=== PATIENT | female | born 1990 | race Caucasian/White ===

== ENCOUNTER 2023-11-19 09:15 | Outpatient (AMB) | payer OTHER, SELFPAY ==
--- NOTE | 2023-11-19 09:16 | AM.OFFWIN_ITS ---
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 She did not test for COVID yet. She denies known sick contacts. She is a nurse practitioner student. She de nies fever chills, weakness or dizziness, malaise or myalgias, nausea vomiting or diarrhea, significant sore throat or cough, shortness of breath or chest pain, decreased hearing or tinnitus, discharge from the ear, or other significant associated symptoms. No significant past medical history reported, except for being very busy and stressed the past week. [facility] Social History Patient Tobacco Use Status: Never used Tobacco Review of Systems Const All systems reviewed & are unremarkable except as noted in HPI and below Physical Exam Vital Signs: Last Vital Signs Temp 97.9 F 11/19/23 09:18 Pulse 64 11/19/23 09:18 BP 100/60 11/19/23 09:18 Pulse Ox 99 11/19/23 09:18 Oxygen Delivery Method Room Air 11/19/23 09:18 BMI result Body Mass Index 20.8 Const General: cooperative, healthy appearing, comfortable, no acute distress, alert, awake, Physically active and well groomed; No anxious, diaphoretic, ill appearing, intoxicated appearing, poor hygiene or tired appearing Nutritional Appearance: average body habitus Limitations: no limitations HEENT Head: Yes normal to inspection, Yes normocephalic and Yes atraumatic Ears: hearing grossly normal bilaterally, external ears normal, TM normal on the left, EAC's normal and TM abnormal (Right side has some visible fluid around the edge) with fluid behind the TM; not bulging, not erythematous, with no loss of landmarks, not perforated and not retracted General nose exam: Normal external nose present, Normal nares present, No nasal polyps present and Normal nasal mucous membranes and turbinates present Face and sinus: Yes normal facial exam, Yes sinuses nontender and Yes face symmetric Mouth: Normal oral and palatal mucosa present, lip normal and tongue normal Throat: No tonsils normal, Yes uvula midline, Yes abnormal tonsil (Some mild erythema and white exudate on the right side), No peritonsillar mass, Yes sales analytics manager ior oropharynx abnormal, Yes postnasal drainage, No uvula laterally displaced, No uvular edema and No cobblestoning Eyes General: appearance normal, both eyes and all related structures Neck Neck: Yes normal visual inspection, Yes no lymphadenopathy, Yes trachea midline, Yes supple and No anterior neck swelling Resp Effort & Inspection: normal respiratory effort Skin Other: Good color, warm and dry Psych Appearance: grossly normal Mental Status: mental status grossly normal Speech and movement: Normal speech and movement present Affect: normal affect Attitude: cooperative Thought process: Normal thought process present Insight: Good insight present (Psych) Judgement: Good judgement present (Psych) Results AMB Rapid Strep AMB Rapid Strep Negative Last Edit by Mikael Honeycutt CMA on 11/19/23 09 :58 Results Reviewed Results Reviewed: Laboratory Last Values Strep Scn Rapid Clinic Negative 11/19/23 09:58 Negative Assessment & Plan Assessment & Plan (1) Serous otitis media: Code(s): H65.90 - Unspecified nonsuppurative otitis media, unspecified ear Qualifiers: Chronicity: acute Laterality: right Recurrence: non-recurrent Qualified Code(s): H65.01 - Acute serous otitis media, right ear Plan: Patient about a week in to URI, and developing pressure to the right inner ear, that radiates down the throat. Pending flu COVID and RSV results, as well as throat culture, as she does have some speckled white to the right tonsil today. Rapid strep screen was negative. She has an apparent serous otitis media, and we discussed supportive measures such as ibuprofen, heating the ear, tugging and swallowing frequently with good water intake. She also can use Flonase. She will monitor her symptoms closely and will follow up if she persists or worsens, including increased ear pain, fever or chills. 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 Orders: Orders Throat Culture Today J02.9 - Acute pharyngitis, unspecified AMB Rapid Strep Screen Today Z13.9 - Encounter for screening, unspecified SARS-CoV2/FLU/RSV Today J06.9 - Acute upper respiratory infection, unspecified Coding Level of Care Code New Pt Level 4 (00648) Diagnoses Non-recurrent acute serous otitis media of right ear H65.01 Chronicity: acute Laterality: right Recurrence: non-recurrent
[2023-11-19 09:18] VITALS: BP 100/60; PULSE 64; TEMP 36.6; O2SAT 99; BMI 20.8
== END 2023-11-19 10:19 | disposition home or self-care (01) ==
PROVIDERS: PCP Registered Nurse; Visit Provider Physician Assistant Medical
DX: H65.01 Acute serous otitis media, right ear (principal); J02.9 Acute pharyngitis, unspecified
CPT/HCPCS: 87880; 99051; 99204

== ENCOUNTER 2023-11-19 09:54 | Outpatient (REF) | payer OTHER, SELFPAY ==
[2023-11-19 12:28] LABS: Influenza A PCR NEGATIVE (Negative); Influenza B PCR NEGATIVE (Negative); Resp Syncy Virus RNA Qual PCR NEGATIVE (Negative); SARS COV2 PCR INHOUSE NEGATIVE (Negative)
== END 2023-11-19 09:55 | disposition home or self-care (01) ==
LOC: HO.LAB 09:54
PROVIDERS: Visit Provider Physician Assistant Medical
DX: J06.9 Acute upper respiratory infection, unspecified (principal); Z13.9 Encounter for screening, unspecified
CPT/HCPCS: 0241U; 87070

== ENCOUNTER 2024-07-26 07:52 | Outpatient (AMB) | payer OTHER, SELFPAY ==
--- OUTSIDE RECORDS SUMMARY | 2024-07-26 07:55 | XMS_ITS ---
Author Organization [facility], [facility] Address [address] [place] [phone] Care Team Providers Care Adzing And Boring Machine Helper Name Role Phone KAYLIN RANGEL Primary Care Provider [phone] Avery Angella Hernandez [phone] REASON FOR VISIT Refills MEDICATIONS Medication SIG (Take, Route, Frequency, Duration) Notes Start Date End Date Status Methylphenidate HCl ER (OSM) 36 MG 1 tablet in the morning Orally Once a day for 28 days 09/29/2023 10/27/2023 Active Encounters Encounter Location Date Provider Diagnosis [facility], [address] [id number] 09/28/2023 Angella Hernandez Attention deficit hyperactivity disorder (ADHD), combined type F90.2 ASSESSMENTS Encounter Date Diagnosis Assessment Notes Treatment Notes Treatment Clinical Notes Section Notes 09/28/2023 Attention deficit hyperactivity disorder (ADHD), combined type (ICD-10 - F90.2) PLAN OF TREATMENT Medication Medication Name Sig Start Date Stop Date Notes Methylphenidate HCl ER (OSM) 36 MG 1 tablet in the morning Orally Once a day for 28 days 09/29/2023 10/27/2023 Progress Notes * DAVID RECINOSDOB: [birth year] (33 yo F)Acc No.[id number]:09/28/2023 Patient:??DAVID RECINOS :1990?Age:33 Y?Sex:Fe male Phone: Address:[address] [place] [address], [address], [place] [address] * Refills?? Refill Methylphenidate HCl ER (OSM) Tablet Extended Release, 36 MG, Orally, 28 Tablet, 1 tablet in the morning, Once a day, 28 days, Refills=0 * true * Date:??
--- OUTSIDE RECORDS SUMMARY | 2024-07-26 07:55 | XMS_ITS ---
Author Organization [facility], [facility] Address [address] [place] [address] [phone] Care Team Providers Care Licensed And Certified Midwife Name Role Phone KAYLIN RANGEL Primary Care Provider [phone] Avery Angella Hernandez [phone] REASON FOR VISIT Refills MEDICATIONS Medication SIG (Take, Route, Frequency, Duration) Notes Start Date End Date Status Levothyroxine Sodium 25 MCG TAKE ONE-SEBASTIÁN F TABLET BY MOUTH DAILY IN THE MORNING ON AN EMPTY STOMACH for 90 Active traZODone HCl 50 MG 1 tablet at bedtime as needed Orally Once a day for 90 days Active Encounters Encounter Location Date Provider Diagnosis [facility], [address] [id number] 12/20/2023 Angella Hernandez Primary insomnia F51.01 ASSESSMENTS Encounter Date Diagnosis Assessment Notes Treatment Notes Treatment Clinical Notes Section Notes 12/20/2023 Primary insomnia (ICD-10 - F51.01) PLAN OF TREATMENT Medication Medication Name Sig Start Date Stop Date Notes Levothyroxine Sodium 25 MCG TAKE ONE-SEBASTIÁN F TABLET BY MOUTH DAILY IN THE MORNING ON AN EMPTY STOMACH for 90 traZODone HCl 50 MG 1 tablet at bedtime as needed Orally Once a day for 90 days Progress Notes * DAVID RECINOSDOB: [birth year] (33 yo F)Acc No.[id number]:12/20/2023 Patient:??DAVID RECINOS :1990?Age:33 Y?Sex:Fe male Phone: Address:[address] [place] [address], [address], [place] [address] * Refills?? Refill traZODone HCl Tablet, 50 MG, Orally, 90 Tablet, 1 tablet at bedtime as needed, Once a day, 90 days, Refills=1 Refill Levothyroxine Sodium Tablet, 25 MCG, 45 Tablet, TAKE ONE-HALF TABLET BY MOUTH DAILY IN THE MORNING ON AN EMPTY STOMACH, 90, Refills=3 * true * Date:??
--- OUTSIDE RECORDS SUMMARY | 2024-07-26 07:55 | XMS_ITS | Patient Health Record ---
Author Organization [employer] [facility] Address [address] [place] [phone] Care Team Providers Care Seasoning Sprayer Name Role Phone KAYLIN RANGEL Primary Care Provider [phone] Angella Hernandez Unavailable [phone] ALLERGIES No Known Allergies REASON FOR REFERRAL No Information MEDICATIONS Medication SIG (Take, Route, Frequency, Duration) Notes Start Date End Date Status Opzelura 1.5 % 1 application Externally Twice a day for 30 days Active Levothyroxine Sodium 25 MCG TAKE ONE-HALF TABLET BY MOUTH DAILY IN THE MORNING ON AN EMPTY STOMACH for 90 Active B12 Not-Taking cloNIDine HCl 0.1 MG 1 tablet Orally Onc e a day Not-Taking Iodine 500mcg 3x/wk Active Selenium 200 MCG 1 capsule Orally Once a day 02/22/2023 Active D3-1000 25 MCG (1000 UT) TAKE 1 CAPSULE BY MOUTH EVERY DAY FOR 90 DAYS Active Vyvanse 30 MG 1 capsule in the morning Orally Once a day for 28 days 06/08/2023 Not-Taking Vitamin C 500 MG as directed Orally Active tiZANidine HCl 2 MG 1 tablet as needed Orally Three times a day 02/22/2023 Not-Taking Mirena (52 MG) 20 MCG/DAY as directed Intrauterine Active Prazosin HCl 2 MG 1 capsule at bedtime Orally Once a day Not-Taking Fish Oil Active traZODone HCl 50 MG TAKE 1 TABLET BY MOUTH ONCE DAILY AT BEDTIME NEEDED for 90 Active SOCIAL HISTORY Tobacco Use: Social History Observation Description Date Details (start date - stop date) Former Smoker NA - NA Sex Assigned At : Social History Observation Description Sex Assigned At Unknown Tobacco Use/Smoking Question Answer Notes Tobacco use: former smoker How long has it been since y ou last smoked? 1-5 years Additional Findings: Tobacco User Heavy cigarett e smoker (20-39 cigs/day) Section Notes: Lives in [place] alone. 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 Enjoys the outdoors Lives in [place] alone. Enjoys the outdoors Lives in [place] alone. 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) Active confirmed 78167273 Problem Primary insomnia (F51.01) Active confirmed 6660121 Problem Vitiligo (L80) Active confirmed 8444920 7 Problem Other fatigue (R53.83) Active confirmed 51261768 Problem Vitamin D deficiency (E55.9) Active confirmed 40071194 Problem Anxiety (F41.9) Active confirmed 274300 02 Problem Attention deficit hyperactivity disorder (ADHD), combined type (F90.2) Active confirmed 62230947 VITAL SIGNS Height-cm 170.18 cm 09/16/2023 Height 67 in 09/16/2023 Encounters Encounter Location Date Provider Diagnosis [address] [id number] 08/30/2023 Angella Hernandez [address] [id number] 07/26/2023 Angella Hernandez Attention deficit hyperactivity disorder (ADHD), combined type F90.2 ; Autoimmune thyroiditis E06.3 ; Vitamin D deficiency E55.9 and Encounter to discuss test results Z71.[address] [id number] 09/16/2023 Angella Hernandez Attention deficit hyperactivity disorder (ADHD), combined type F90.2 and Autoimmune thyroiditis E06.[address] [id number] 07/26/2023 Angella Hernandez Attention deficit hyperactivity disorder (ADHD), combined type F90.2 [address] [address] [place], [place] [id number] 09/28/2023 Angella Hernandez Attention deficit hyperactivity disorder (ADHD), combined type F90.2 [facility] [address] [place], [place] [phone] 10/07/2023 Angella Hernandez Vitiligo L80 [address] [id number] 12/20/2023 Angella Hernandez Primary insomnia F51.01 ASSESSMENTS Encounter Date Diagnosis Assessment Notes Treatment Notes Treatment Clinical Notes Section Notes 07/26/2023 Attention deficit hyperactivity disorder (ADHD), combined type (ICD-10 - F90.2) Will increase Concerta to see if David can improve her concentration Ideally would like to be on Vyvanse. Will hand write a script to see if she can find this medication and make the switch. Aware she cannot take both of these medications at the same time. She will need to finish Concerta script before filling Vyvanse 4M FU discussed, and she expressed understanding 07/26/2023 Attention deficit hyperactivity disorder (ADHD), combined type (ICD-10 - F90.2) 09/16/2023 Autoimmune thyroiditis (ICD-10 - E06.3) Due for repeat labs Labs already submitted 09/16/2023 Attention deficit hyperactivity disorder (ADHD), combined type (ICD-10 - F90.2) Not stable on current dose/regimen. Denies CP, palpitations, anorexia. ADD/ADHD Score high for patient and indicative of poor control. It is important to understand that stimulants are Schedule-II drugs, which are controlled medications by the [place] (Drug Enforcement Administration). This means we cannot give refills for your stimulant medication unless a new prescription is written for each refill. Schedule-II medications cannot be refilled by telephone. Misuse of stimulant medications is a common and recognized concern in the [facility]. THIS OFFICE WILL NOT TOLERATE MISUSE. EVEN THE APPEARANCE OF MISUSE IS ENOUGH JUSTIFICATION TO CEASE STIMULANT TREATMENT. THERE WILL BE NO REFILLS GIVEN FOR LOST OR STOLEN PRESCRIPTIONS. Do not give your prescription medication to anyone. Keep your medication in a safe place where others do not have access. 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 She is currently taking the 1.5 of Concerta because of the shortage of 36mg. 09/28/2023 Attention deficit hyperactivity disorder (ADHD), combined type (ICD-10 - F90.2) 10/07/2023 Vitiligo (ICD-10 - L80) 12/20/2023 Primary insomnia (ICD-10 - F51.01) 07/26/2023 Autoimmune thyroiditis (ICD-10 - E06.3) Continue current dose FU 8 weeks with repeat TSH 07/26/2023 Vitamin D deficiency (ICD-10 - E55.9) Increase Vit D rich foods Check levels periodically Supplement as indicated 07/26/2023 Encounter to discuss test results (ICD-10 - Z71.2) 07/15/23 US Thyroid Impression- subcentimeter left lobe nodule. No follow-up is recommended PLAN OF TREATMENT Pending Test Test Name Order Date Ultrasound : Neck 06/17/2023 Future Test Test Name Order Date T3, FREE 07/26/2023 T3, REVERSE 07/26/2023 THYROID PEROXIDASE (ANTIMICROSOMAL) ANTI BODIES 07/26/2023 THYROID STIMULATING IMMUNOGLOBULIN 07/26 TSH 07/26/2023 THYROID PANEL 07/26/2023 Insurance Providers Payer Name Payer Address Payer Phone Subscriber Number Group Number Insured Name Patient Relationship to Insured Coverage Start Date Coverage End Date [employer] [address] [place] [phone] [id number] DAVID RECINOS Self - patient is the insured MEDICAL (GENERAL) HISTORY Medical History History ICD Code Anxiety Depression Vitiligo Surgical History Surgery Date(Month/Year) Clare Teeth 2007 Appendectomy 02/14/2023
--- OUTSIDE RECORDS SUMMARY | 2024-07-26 07:55 | XMS_ITS ---
Author Organization [facility], [facility] Address [address] [place] [phone] Care Team Providers Care Education Program Coordinator Name Role Phone KAYLIN RANGEL Primary Care Provider [phone] Avery Angella Hernandez [phone] REASON FOR VISIT Refills MEDICATIONS Medication SIG (Take, Route, Fr equency, Duration) Notes Start Date End Date Status Opzelura 1.5 % 1 application Model Artists[employer] ally Twice a day for 30 days Active Encounters Encounter Location Date Provider Diagnosis [address] [id number] 10/07/2023 Angella Hernandez Vitiligo L80 ASSESSMENTS Encounter Date Diagnosis Assessment Notes Treatment Notes Treatment Clinical Notes Section Notes 10/07/2023 Vitiligo (ICD-10 - L80) PLAN OF TREATMENT Medication Medication Name Sig Start Date Stop Date Notes Opzelura 1.5 % 1 application Model Artists' ally Twice a day for 30 days Progress Notes * DAVID RECINOSDOB: [birth year] (33 yo F)Acc No.[id number]:10/07/2023 Patient:??DAVID RECINOS :1990?Age:33 Y?Sex:Fe male Phone: Address:[address] [place] [address], [address], [place] [address] * Refills?? Refill Opzelura Cream, 1.5 %, Externally, 1, 1 application, Twice a day, 30 days, Refills=1 * true * Date:??
--- OUTSIDE RECORDS SUMMARY | 2024-07-26 07:55 | XMS_ITS | Clinical Summary ---
Author Organization [facility] Business [facility] Address [address] [place] [address] Care Team Providers Care Immigration Lawyer Name Role Phone Ernesto Woods MD Primary Care Pr ovider Medications traZODone (DESYREL) 50 mg tablet Take 1 tablet (50 mg total) by mouth at bedtime. 4 Active methylphenidate 36 mg ER tablet Take 1 tablet (36 mg total) by mouth 1 (one) time each day in the morning. Max Daily Amount: 36 mg 28 tablet 4 Active CLONIDINE HCL ORAL Take by mouth. Active levothyroxine (SYNTHROID, LEVOTHROID) 25 mcg tablet Take 0.5 tablets (12.5 mcg total) by mouth 1 (one) time each day before breakfast. 45 each 5 10/18/19 25 Active levothyroxine (SYNTHROID, LEVOTHROID) 25 mcg tablet Take 0.5 tablets (12.5 mcg total) by mouth 1 (one) time each day before breakfast. 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 IUD (intrauterine device) in place 12/22/2023 Overview (05/16/2024): Paraguard placed in 2021 Primary insomnia 12/22/2023 Thyroid nodule 12/22/2023 Vitiligo 12/22/2023 Encounters Date Type Department Care Team Description 04/25/2024 Telephone Adult Medicine [address] [phone] Ernesto Woods MD Forms/questionnaires ([facility] Influenza Declination Form) from Last 3 Months Surgical History Surgery Date Site/Laterality Comments APPENDECTOMY 02/14/2023 PROCEDURE: HISTORICAL APPENDECTOMY WISDOM TOOTH EXTRACTION PROCEDURE: HISTORICAL WISDOM TEETH EXTRACTION Family History Medical History Relation Name Comments Diabetes Father Heart attack Father Hypertension Father Obesity Father Diabetes Maternal Grandmother Other: gestational diabetes Mother Prostate cancer Paternal Grandfather Lung cancer Paternal Grandmother Other: non smoker Paternal Grandmother Breast cancer Neg Hx Colon cancer Neg Hx Ovarian cancer Neg Hx Relation Name Status Comments Brother 3 brothers Father Alive Maternal Grandfather Maternal Grandmother Mother Alive Paternal Grandfather Paternal Grandmother Sister 2 sisters Social History Tobacco Use Types Packs/Day Years Used Date Smoking Tobacco: Former Cigarettes Q uit: 06/13/2019 Smokeless Tobacco: Never Alcohol Use Standard Drinks/Week Comments Yes 16 (1 standard drink = 0.6 oz pu re alcohol) Comments Unknown Sex and Gender Information Value Date Recorded Sex Assigned at Not on file Legal Sex Female 2:00 PM EDT Gender Identity Not on file Sexual Orientation Not on file Obstetrics History Last Filed Vital Signs Vital Sign Reading Time Taken Comments Blood Pressure 133/86 12/22/2023 2:52 PM EDT Pulse 75 12/22/2023 2:52 PM EDT Temperature - - Respiratory Rate - - Oxygen Saturation - - Inhaled Oxygen Concentration - - Weight 58.1 kg (128 lb) 12/22/2023 2:52 PM EDT Height 170.2 cm (5' 7 ) 12/22/2023 2:52 PM EDT Body Mass Index 20.05 12/22/2023 2:52 PM EDT Plan of Treatment Upcoming Encounters Date Type Department Care Team (Late st Contact Info) Description 07/26/2024 12:00 PM EST Office Visit Adult Medicine [address] [phone] Ernesto Woodse, MD [address] [place] [address] Health Maintenance Due Date Last Done Comments DTaP,Tdap,and Td Vaccines (1 - Tdap) 2007 Hepatitis B Vaccines (1 of 3 - 19+ 3-dose series) 2007 Cervical Cancer Screening: P ap Smear 2009 Depression Screening 02/19/2023 HIV Screening 02/19/2023 Hepatitis C Screening 02/19/2023 Social Influencers of Health Screening 02/19/2023 COVID-19 Vaccine ( - 2023-2 5 season) 2024 Influenza Vaccine (#1) 2024 Cholesterol Screening (Lipid Panel) 02/22/2029 02/23/2024, 02/23/2024 HIB Vaccines Aged Out No longer eligi ble based on patient's age to complete this topic HPV Vaccines Aged Out No longer eligi ble based on patient's age to complete this topic Hepatitis A Vaccines Aged Out No long er eligible based on patient's age to complete this topic IPV Vaccines Aged Out No longer eligi ble based on patient's age to complete this topic MMR Vaccines Aged Out No longer eligi ble based on patient's age to complete this topic Meningococcal ACWY Vaccine Aged Out N o longer eligible based on patient's age to complete this topic Meningococcal B Vacine Aged Out No lo nger eligible based on patient's age to complete this topic Pneumococcal Vaccine: Pediatrics (0 to 5 Years) and At-Risk Patients (6 to 64 Years) Aged Out No longer eligible b ased on patient's age to complete this topic RSV Immunization Patients Under 20 months Aged Out No longer eligible b ased on patient's age to complete this topic Varicella Vaccines Aged Out No longer eligible based on patient's age to complete this topic Procedures Procedure Name Priority Date/Time Associated Diagnosis Comments LIPID PANEL Routine 02/23/2024 from Last 3 Months or Most Recently Relevant to Health Maintenance Results * Lipid panel (02/23/2024) LDL/HDL Ratio 2 0 - 4 Triglycerides 71 0 - 150 mg/dL Cholesterol 189 0 - 200 mg/dL HDL 89 >=40 mg/dL LDL Cholesterol 86 0 - 100 mg/dL Blood Venous blood specimen / Unknown Historical Provider LAB BLOOD ORDERABLES Bertha matos Result from Last 3 Months or Most Recently Relevant to Health Maintenance Insurance [address] [place] [address] [employer] Care Teams Immigration Lawyer Relationship Specialty Start Date End Date Ernesto Woods MD PCP - General 12/19/23
[2024-07-26 08:01] VITALS: BP 96/80; PULSE 77; O2SAT 96; BMI 20.9
--- NOTE | 2024-07-26 08:01 | A.OFFPC_ITS ---
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 Accompanied by: Self / Same As Patient Allergies No Known Allergies Allergy (Verified 07/26/24 08:17) Medication List - Last Reconciled 07/26/24 by Marybeth Manrique PA-C cholecalciferol (vitamin D3) (Vitamin D3) 25 mcg PO DAILY levothyroxine Half tablet Mon-Sat Full tab on Tuesday methylphenidate HCl ER 36 mg PO QAM trazodone 50 mg PO BEDTIME Tobacco use date assessed: 07/26/24 Dental Screening Dental Screen Date: 07/26/24 Did you have a dental visit in the last 12 months?: Yes Did you have a dental problem in the last 6 months where you did not have access to dental care?: No Was dental information given to patient?: Patient has dentist HPI establish care/cough, chill, headaches HPI Details 33-year-old female coming to the office for the 1st time. Presenting with persistent upper respiratory symptoms, including cough, lymphadenopathy, and symptomatic dizziness. Past medical history includes ADHD, previously managed with Adderall, currently without methylphenidate for three weeks, requiring confirmation of diagnosis via previous records. 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 History of Vitamin D deficiency and vitiligo; past use of dermatologists has been problematic due to insurance and distance. The patient ceased using a copper IUD in February due to attempts to conceive; experiencing delayed menstruation, with three-week delay in cycle, negative urine tests. She has been having cough, lymph swelling and headaches which are intermittent since Tuesday. Her fiance was sick last week. She also mentions having some right ear pain and dizziness that began yesterday. She has been using DayQuil without good relief. [facility] Medical History Situational depression Surgical History H/O tooth extraction Family History Paternal Grandmother Lung cancer Paternal Grandfather Pancreatic cancer Other Diabetes Hypertension Social History Housing: House Patient Tobacco Use Status: Former Tobacco user e-Cigarette/Vaping Use: Currently Using service: No Current occupational status: employed and student Current occupational exposures/hazards: No Cognitive needs: No Hearing needs: No Vision needs: No Female Reproductive History Menstrual control method: none Total pregnancies: 0 History of abnormal pap smear: Yes Questionnaire PHQ-9 Over the last 2 weeks, how often have you been bothered by any of the following problems? 1. Little interest or pleasure in doing things: not at all 2. Feeling down, depressed, or hopeless: not at all 3. Trouble falling or staying asleep, or sleeping too much: not at all 4. Feeling tired or having little energy: not at all 5. Poor appetite or overeating: not at all 6. Feeling bad about yourself - or that you are a failure or have let yourself or your family down: not at all 7. Trouble concentrating on things, such as reading the newspaper or watching television: not at all 8. Moving or speaking so slowly that other people could have noticed. Or the op posite - being so fidgety or restless that you have been moving around a lot more than usual: not at all 9. Thoughts that you would be better off or of hurting yourself in some way: not at all Total score: 0 Source: Developed by Drs. Arsh Maria, Erika Lyle, Ronald Webster and colleagues, with an educational vero from [employer]. Thrive Questionnaire Date Thrive assessed: 07/26/24 I am a: Patient What is your living situation today?: I have a steady place to live Within the past 12 months, did the food you bought not last and you didn't have the money to get more?: Never true Within the past 12 months, did you worry whether your food would run out before you got money to buy more?: Never true Do you have trouble paying for medicines?: No Do you have trouble getting transportation to medical appointments?: No Do you have trouble paying your heating and electricity bill?: No Do you have trouble taking care of your child, family member or friend?: No Do you have trouble with day-to-day activities such as bathing, preparing meals, shopping, managing finances, etc.?: No Are you currently unemployed and looking for a job?: No Are you interested in more education?: No Please select the resources that you would like help with: None Currently or been in a relationship where the following occur: No concerns reported THRIVE Score: 0 AUDIT C Alcohol Use Questionnaire (AUDIT-C) 1. How often do you have a drink containing alcohol?: 4 or more times a week 2. How many drinks containing alcohol do you have on a typical day when you are drinking?: 1 or 2 3. How often do you have six or more drinks on one occasion?: Never Total Score: 4 KIANNA-7 AMB Questionnaire KIANNA-7 Date KIANNA - 7 assessed: 07/26/24 Feeling nervous, anxious, or on edge: 0 = Not at all Not being able to stop or control worryin = Not at all Worrying too much about different things: 0 = Not at all Trouble relaxin = Not at all Being so restless that it is hard to sit still: 0 = Not at all Becoming easily annoyed or irritable: 0 = Not at all Feeling afraid as if something awful might happen: 0 = Not at all Total KIANNA-7 score (0-4 normal; 5-9 mild; 10-14 moderate; 15-21 severe): 0 Source: Developed by Drs. Arsh Maria, Erika Lyle, Ronald Webster and colleagues, with an educational vero from [employer]. Review of Systems Const Reports body aches, Reports chills, Reports fever(s), Reports headache(s) and Denies poor appetite Eyes Reports no additional complaints ENT Denies dysphagia, Denies dizziness, Reports headache(s) and Denies odynophagia Card Denies chest pain, Denies syncope, Denies edema, Denies irregular heart rhythm, Denies lightheadedness and Denies dyspnea Resp Reports cough and Denies dyspnea GI Denies abdominal pain, Denies constipation, Denies dysphagia, Denies diarrhea, Reports nausea, Denies odynophagia and Denies vomiting Reports no additional complaints Musc Reports no additional complaints and Denies abnormal gait Skin/Breast Reports system reviewed and no additional complaints, except as documented Neuro Denies abnormal gait, Denies dizziness, Denies syncope and Reports headache(s) Psych Reports no additional complaints Physical exam (Primary Care) Vital Signs: Oxygen Delivery Method Room Air 07/26/24 08:01 BMI result Body Mass Index 20.9 Tobacco/Smoking Status: Tobacco use Status Tobacco use date assessed 07/26/24 07/26/24 08:08 Patient Tobacco Use Status Never used Tobacco 07/26/24 08:08 Currently or been in a relationship where the following occur: No concerns reported Const General: cooperative, healthy appearing, comfortable and no acute distress Orientation/consciousness: patient oriented x3 HENMT Head: Yes normocephalic Ears: hearing grossly normal bilaterally, TM's normal bilaterally and EAC's normal General nose exam: Normal external nose present Eyes General: appearance normal, both eyes and all related structures Conjunctivae: conjunctivae normal Neck Neck: Yes full ROM and Yes no lymphadenopathy Resp Effort & Inspection: normal respiratory effort Auscultation: clear to auscultation bilaterally, no crackles, no rales, no rhonchi and no wheezes Cardio Rate: regular rate Rhythm: regular rhythm Skin General skin exam: no rashes or lesions noted Neuro General: patient oriented x3 Gait exam (Neuro): Normal gait present Extrem General: Yes normal to inspection, Yes full ROM and No edema Psych Affect: normal affect Attitude: cooperative Insight: Good insight present (Psych) Judgement: Good judgement present (Psych) Coding Level of Care Code New Pt Level 4 (14773) Diagnoses Primary insomnia F51.01 Insomnia type: primary ADHD F90.9 Vitamin D deficiency E55.9 Vitiligo L80 Hypothyroidism E03.9 Late menses N92.6 Upper respiratory infection J06.9 Assessment & Plan Assessment & Plan (1) Insomnia: Code(s): G47.00 - Insomnia, unspecified Category: Medical Qualifiers: Insomnia type: primary Qualified Code(s): F51.01 - Primary insomnia Plan: Patient has a history of insomnia of managed well on the trazodone 50 mg. (2) ADHD: Code(s): F90.9 - Attention-deficit hyperactivity disorder, unspecified type Category: Medical Plan: Patient previously being treated with Adderall while in [place] but currently on methylphenidate previously prescribed by last PCP. She states she has been without the medication for 3 weeks and is looking to have a refill prior to starting her classes in 2 weeks. She is also looking to transition back to Adderall she felt it worked better for her. Plan to confirm diagnosis of ADHD through medical record and transitioned to Adderall. Referral also placed to outpatient psych clinic. (3) Vitamin D deficiency: Code(s): E55.9 - Vitamin D deficiency, unspecified Category: Medical Plan: Ordered for updated blood work. Continue on vitamin-D supplementation (4) Vitiligo: Code(s): L80 - Vitiligo Category: Medical Plan: Referral placed to Dermatology (5) Hypothyroidism: Comment: Mel's Code(s): E03.9 - Hypothyroidism, unspecified Category: Medical Plan: Patient currently on levothyroxine 25 mcg ordered for updated blood work. (6) Late menses: Code(s): N92.6 - Irregular menstruation, unspecified Category: Medical Plan: Patient currently follows with gynecology through [facility]. As urine tests have been negative ordered for blood test to confirm. Although fertility aspirations were considered, I advised on the timeframe after which a specialist could be consulted if conception remains challenged. (7) Upper respiratory infection: Code(s): J06.9 - Acute upper respiratory infection, unspecified Category: Medical Plan: Given patient's symptoms ordered for viral panel. Continue to use Mucinex for productive cough, Delsym for dry cough. Plan Patient was informed and verbally consented to the use of an ambient scribe for clinic note documentation during this visit. This note was constructed using voice recognition software. While every effort has been made to ensure accuracy and malted milk masher, still areas may have been included sometimes these areas may affect the content or meeting of the given symptoms. Total time spent caring for the patient today was 30 minutes. This includes time spent before the visit reviewing the chart, time spent during the visit, and time spent after the visit and documentation. Orders: Orders SARS-CoV2/FLU/RSV Today J06.9 - Acute upper respiratory infection, unspecified, R09.89 - Other specified symptoms and signs involving the circulatory and respiratory systems Complete Blood Count Auto Diff Today Z00.00 - Encounter for general adult medical examination without abnormal findings Vitamin B12 and Folate Today Z00.00 - Encounter for general adult medical examination without abnormal findings Vitamin D 25-OH Total Today Z00.00 - Encounter for general adult medical examination without abnormal findings TSH reflex Free T4 Today Z00.00 - Encounter for general adult medical exami nation without abnormal findings Free T4 (Free Thyroxine) Today Z00.00 - Encounter for general adult medical examination without abnormal findings HCG Quantitative Today N92.6 - Irregular menstruation, unspecified Lipid Panel Today Z13.220 - Encounter for screening for lipoid disorders Comprehensive Met. Panel Today Z00.00 - Encounter for general adult medical examination without abnormal findings Referrals Dermatology Referral L80 - Vitiligo Psychiatry Outpatient Consultation Service F90.9 - Attention-deficit hyperactivity disorder, unspecified type
== END 2024-07-26 08:44 | disposition home or self-care (01) ==
PROVIDERS: PCP Registered Nurse
DX: F51.01 Primary insomnia (principal); F90.9 Attention-deficit hyperactivity disorder, unspecified type; E55.9 Vitamin D deficiency, unspecified; L80 Vitiligo; E03.9 Hypothyroidism, unspecified; N92.6 Irregular menstruation, unspecified; J06.9 Acute upper respiratory infection, unspecified

== ENCOUNTER 2024-07-26 07:52 | Outpatient (REF) | payer OTHER, SELFPAY ==
[2024-07-26 09:09] LABS: MANUAL DIFF FLAG NO
[2024-07-26 09:12] LABS: Basophils Percent Auto 0.3 % (0-2); Eosinophils Absolute Auto 0.1 X10*3/uL (0.0-0.4); Eosinophils Percent Auto 2.6 % (0-4); Hematocrit 43.9 % (37.0-47.0); Hemoglobin 14.3 g/dl (12.0-16.0); Lymphocytes Absolute Auto 0.9 X10*3/uL (1.2-4.9); Lymphocytes Percent Auto 27.9 % (20-40); Mean Corpuscular HGB Conc 32.6 g/dl (31.0-35.0); Mean Corpuscular Hemoglobin 29.2 pg (27.0-33.0); Mean Corpuscular Volume 89.8 fL (80.0-98.0); Mean Platelet Volume 9.7 fL (9.4-12.3); Monocytes Absolute Auto 0.3 X10*3/uL (0.1-1.2); Monocytes Percent Auto 11.1 % (2-11); Neutrophils Absolute Auto 1.8 x10*3/uL (2.0-8.3); Neutrophils Percent Auto 58.1 % (45-73); Platelet Count 176 X10*3/uL (160-400); Red Blood Count 4.89 X10*6/uL (4.20-5.50); Red Cell Distribution Width 12.1 % (11.0-16.0); White Blood Count 3.1 X10*3/uL (4.8-10.8)
--- OUTSIDE RECORDS SUMMARY | 2024-07-26 09:18 | XMS_ITS | Clinical Summary ---
Author Organization Patient Business Ser [facility][note 3] Address [address] [place] [address] Care Team Providers Care Periodicals Library Assistant Name Role Phone Ernesto Woods MD Primary [...] Care Team Description 04/25/2024 Telephone Adult Medicine [address] [phone] Ernesto Woods MD Forms/questionnaires ([facility] Influenza Declination Form) from Last 3 Months [...] 12:00 PM EST Office Visit Adult Medicine [address] [phone] Ernesto Woodse, MD [address] [place] [address] Health Maintenance Due Date Last Done Comments [...] Recently Relevant to Health Maintenance Insurance [address] [place] [address] [employer] Care Teams Periodicals Library Assistant Relationship Specialty Start Date End Date Ernesto Woods MD PCP - General 12/19/23
[2024-07-26 09:35] LABS: Alanine Aminotransferase 22 U/L (0-31); Albumin Level 4.2 g/dL (3.5-5.0); Alkaline Phosphatase 55 U/L (39-117); Anion Gap 12 (12-20); Aspartate Amino Transferase 27 U/L (5-31); Bilirubin Total 0.3 mg/dL (0.0-1.0); Blood Urea Nitrogen 11 mg/dL (9-16); Calcium 9.2 mg/dL (8.4-10.2); Carbon Dioxide 29 mmol/L (22-29); Chloride 104 mmol/L (96-108); Cholesterol 177 mg/dL (<200); Estimated Glomerular Filt Rate > 60; Glucose Random 85 mg/dL (60-115); HDL Cholesterol 75 mg/dL (>40); LDL Cholesterol Calculated 88 mg/dL (<100); Potassium 4.6 mmol/L (3.3-5.1); Sodium 140 mmol/L (135-145); Triglycerides 70 mg/dL (<150)
[2024-07-26 09:51] LABS: Free T4 (Free Thyroxine) 1.05 ng/dL (0.71-1.85); HCG Quantitative < 2 mIU/mL; TSH reflex Free T4 3.35 uIU/mL (0.32-4.0); Vitamin D 25-OH Total 23.8 ng/mL (>30)
[2024-07-26 10:10] LABS: Influenza A PCR POSITIVE (Negative); Influenza B PCR NEGATIVE (Negative); Resp Syncy Virus RNA Qual PCR NEGATIVE (Negative); SARS COV2 PCR INHOUSE NEGATIVE (Negative)
[2024-07-26 10:28] LABS: Folate 10.5 ng/mL (> or = 4.0); Vitamin B12 938 pg/mL (200-900)
== END 2024-07-26 07:53 | disposition home or self-care (01) ==
LOC: HO.LAB 07:52
DX: Z00.00 Encounter for general adult medical examination without abnormal findings (principal); J06.9 Acute upper respiratory infection, unspecified; R09.89 Other specified symptoms and signs involving the circulatory and respiratory systems; N92.6 Irregular menstruation, unspecified; Z13.6 Encounter for screening for cardiovascular disorders; E55.9 Vitamin D deficiency, unspecified
CPT/HCPCS: 0241U; 80053; 80061; 82306; 82607; 82746; 84439; 84443; 84702; 85025